=== PATIENT | female | born 2005 | race Caucasian/White ===

== ENCOUNTER 2024-04-08 13:29 | Emergency (ER) | payer MEDICAID, SELFPAY ==
[2024-04-08 13:31] VITALS: BP 142/86; PULSE 107; RESP 15; TEMP 36.1; O2SAT 96
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
[2024-04-08 15:30] VITALS: BP 119/64; PULSE 101; RESP 16; O2SAT 98
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
[2024-04-08] MEDS: Ibuprofen 600 MG Tablet PO (17:11)
[2024-04-08 17:12] VITALS: BP 112/96; PULSE 78; RESP 18; TEMP 36.6; O2SAT 99
== END 2024-04-08 17:15 | disposition home or self-care (01) ==
PROVIDERS: Emergency Provider Emergency Medicine; Visit Provider Emergency Medicine
DX: S16.1XXA Strain of muscle, fascia and tendon at neck level, initial encounter (principal); S40.012A Contusion of left shoulder, initial encounter; V89.2XXA Person injured in unspecified motor-vehicle accident, traffic, initial encounter; F84.0 Autistic disorder; F32.A Depression, unspecified; F41.9 Anxiety disorder, unspecified; Z79.899 Other long term (current) drug therapy
CPT/HCPCS: 70450; 71045; 72040; 72170; 73030; 99282